=== PATIENT | female | born 1950 | race American Indian/Alaskan Native ===

== ENCOUNTER 2016-11-21 10:52 | Emergency (ER) | payer MEDICAID, MEDICARE ==
[2016-11-21 11:03] VITALS: TEMP 98.3; O2SAT 100; BMI 30.5
--- NOTE | 2016-11-21 11:31 | ED PDOC ---
Arrival/HPI - General Chief Complaint: Abnormal Skin Integrity Time Seen by Provider: 11/21/16 10:55 Historian: Patient, Family - History of Present Illness Narrative History of Present Illness (Text): 11/21/16 11:31 56-year-old female with a history of diabetes presents today with concerns for abscess to the right temporal region of the face. Patient denies pain. Denies fevers or chills. States she noticed the swelling to the face one week ago. No medications taken for pain at home. No other complaints Time/Duration: 1 week Symptom Onset: Sudden Symptom Course: Unchanged Quality: Other (no pain) Past Medical History - Provider Review Nursing Documentation Reviewed: Yes - Travel History Have you recently traveled outside [place] w/in the past 3 mons?: No - Past History Past History: Non-Contributing - Infectious Disease Hx of Infectious Diseases: None - Tetanus Immunization Tetanus Immunization: Unknown - Cardiac Hx Cardiac Disorders: (ptca with stent 2013) Hx Hypertension: Yes Hx Pacemaker: No Other/Comment: cardiac stent - Pulmonary Other/Comment: cardiac stent - Neurological HX Cerebrovascular Accident: Yes (04/20/15) Hx Paralysis: No - HEENT Hx Cataracts: Yes (b/l laser sx) - Endocrine/Metabolic Hx Diabetes Mellitus Type 2: Yes - Hematological/Oncological Hx Blood Transfusions: No Hx Blood Transfusion Reaction: No - Integumentary Other/Comment: dry skin to both feet was seeing dr christensen for right foot wound which is healed - Musculoskeletal/Rheumatological Hx Falls: No - Gastrointestinal Other/Comment: egd 04/20/15 abd and uterine mass, dx wiuth duodenitis, gastritis , bx done of abd mass - Psychiatric Hx Psychophysiologic Disorder: No Hx Emotional Abuse: No Hx Physical Abuse: No Hx Substance Use: No - Surgical History Hx Cardiac Catheterization: Yes Hx Section: Yes - Anesthesia Hx Anesthesia Reactions: No Hx Malignant Hyperthermia: No - Suicidal Assessment Feels Threatened In Home Enviroment: No Family/Social History - Physician Review Nursing Documentation Reviewed: Yes Family/Social History: Unknown Family HX Smoking Status: Never Smoked Hx Alcohol Use: No Hx Substance Use: No Hx Substance Use Treatment: No Allergies/Home Meds Allergies/Adverse Reactions: Allergies No Known Allergies Allergy (Verified 12/10/15 14:45) Home Medications: Home Meds Medication Instructions Recorded Confirmed Clopidogrel [Plavix] 75 mg PO DAILY 07/05/15 11/21/16 Linagliptin/Metformin HCl 1 tab PO BID 07/05/15 11/21/16 [Jentadueto 2.5 mg-1000 mg Tab] Metoprolol Tartrate [Lopressor] 100 mg PO BID 07/05/15 11/21/16 Aspirin 81 mg PO DAILY 07/07/15 11/21/16 Review of Systems - Review of Systems Constitutional: absent: Fatigue, Fevers Respiratory: absent: SOB, Cough Cardiovascular: absent: Chest Pain, Palpitations Gastrointestinal: absent: Abdominal Pain, Nausea, Vomiting Skin: Abscess Neurological: absent: Headache, Dizziness Psychiatric: absent: Anxiety, Depression Physical Exam Vital Signs Reviewed: Yes Vital Signs Temp Pulse Resp BP Pulse Ox 11/21/16 10:58 98.3 F 90 18 162/94 H 100 Temperature: Afebrile Blood Pressure: Hypertensive Pulse: Regular Respiratory Rate: Normal Appearance: Positive for: Well-Appearing, Non-Toxic, Comfortable Pain Distress: None Mental Status: Positive for: Alert and Oriented X 3 - Systems Exam Head: Present: Atraumatic, Other (there is a 3cm round fluctance noted to the right temporal region; minimal erythema; non tender. ) Mouth: Present: Moist Mucous Membranes Neck: Present: Normal Range of Motion Respiratory/Chest: Present: Clear to Auscultation Cardiovascular: Present: Regular Rate and Rhythm, Normal S1, S2. No: Murmurs Abdomen: No: Tenderness Back: Present: Normal Inspection Neurological: Present: GCS=15 Skin: Present: Warm, Dry Psychiatric: Present: Alert Medical Decision Making ED Course and Treatment: 11/21/16 11:33 66yr old female with swelling to right temporal region of face x 1 week. cyst vs abscess. will get surgical consult; case discussed with veronica surgical technologist. who will see patient at bedside. 11/21/16 12:38 pt seen and evaluated by surgical residents. I&D performed by surgical technologist veronica and dr. valladares. bactrim given po. will d/c patient home to f/u with Dr. Marmolejo. Advised patient to take Bactrim twice daily 7 days. Advised follow-up with a surgeon within the next 2 days. Advised patient to return for packing removal within the next 2 days. Advised may return if symptoms worsen or persist or if new concerning symptoms develop impression; infected sebaceous cyst Bactrim 1 tablet twice daily 7 days Follow-up with primary care physician within the next 2 days Follow-up with the surgeon within the next 2 days Return for packing removal and wound check in 2 days Return immediately if symptoms worsen,persist or if new symptoms develop. - Medication Orders Current Medication Orders: Trimethoprim/Sulfamethoxazole (Bactrim Ds Tab) 1 tab PO STAT STA PRN Reason: Protocol Stop: 11/21/16 12:38 Discontinued Medications Lidocaine HCl (Lidocaine 1% (20ml)) 10 ml IJ STAT STA Stop: 11/21/16 11:48 Disposition/Present on Arrival - Present on Arrival Any Indicators Present on Arrival: No History of DVT/PE: No History of Uncontrolled Diabetes: No Urinary Catheter: No History Surgical Site Infection Following: None - Disposition Have Diagnosis and Disposition been Completed?: Yes Diagnosis: Infected sebaceous cyst Disposition: HOME/ ROUTINE Disposition Time: 12:43 Patient Plan: Discharge Condition: GOOD Discharge Instructions (ExitCare): Abscess (ED) Additional Instructions: Bactrim 1 tablet twice daily 7 days Follow-up with primary care physician within the next 2 days Follow-up with the surgeon within the next 2 days Return for packing removal and wound check in 2 days Return immediately if symptoms worsen,persist or if new symptoms develop. Prescriptions: Sulfamethoxazole/Trimethoprim [Bactrim DS 800 mg-160 mg] 1 tab PO BID #14 tab Referrals: Henrik Corley MD [Primary Care Provider] - Follow up with primary Sohan Marmolejo MD [Staff Provider] - Follow up with primary
[2016-11-21] MEDS ORDERED: Lidocaine 1% Inj (20ml) IJ STA (11:47)
[2016-11-21] MEDS ORDERED: Tmp-Smz 800 mg-160 mg DS Tab PO STA (12:37)
--- NOTE | 2016-11-21 12:38 | CP.PCM.CON ---
History of Present Illness - History of Present Illness History of Present Illness: Consult note for Dr. Marmolejo: Patient is 66F who presents with an abscess on right temporal region. Patient has a PMH DM and HTN. DM sugar levels averaging 200s. Patient states she's noticed it for a week. Patient has had an I&D in the ED in the past at the back of her neck. Patient agreed to I&D at bedside. Past Patient History - Infectious Disease Hx of Infectious Diseases: None - Tetanus Immunizations Tetanus Immunization: Unknown - Past Medical History & Family History Past Medical History?: Yes - Past Social History Smoking Status: Never Smoked - CARDIAC Hx Cardiac Disorders: (ptca with stent 2013) Hx Hypertension: Yes Hx Pacemaker: No Other/Comment: cardiac stent - PULMONARY Other/Comment: cardiac stent - NEUROLOGICAL HX Cerebrovascular Accident: Yes (04/20/15) Hx Paralysis: No - HEENT Hx Cataracts: Yes (b/l laser sx) - RENAL Hx Chronic Kidney Disease: No - ENDOCRINE/METABOLIC Hx Diabetes Mellitus Type 2: Yes - HEMATOLOGICAL/ONCOLOGICAL Hx Blood Transfusions: No Hx Blood Transfusion Reaction: No - INTEGUMENTARY Other/Comment: dry skin to both feet was seeing dr christensen for right foot wound which is healed - MUSCULOSKELETAL/RHEUMATOLOGICAL Hx Falls: No - GASTROINTESTINAL Other/Comment: egd 04/20/15 abd and uterine mass, dx wiuth duodenitis, gastritis , bx done of abd mass - PSYCHIATRIC Hx Psychophysiologic Disorder: No Hx Emotional Abuse: No Hx Physical Abuse: No Hx Substance Use: No - SURGICAL HISTORY Hx Cardiac Catheterization: Yes Hx Section: Yes - ANESTHESIA Hx Anesthesia Reactions: No Hx Malignant Hyperthermia: No Meds Home Medications: Home Medication List Medication Instructions Recorded Confirmed Type Sulfamethoxazole/Trimethoprim 1 tab PO BID #14 tab 11/21/16 Rx [Bactrim DS 800 mg-160 mg] Allergies/Adverse Reactions: Allergies Allergy/AdvReac Type Severity Reaction Status Date / Time No Known Allergies Allergy Verified 12/10/15 14:45 Physical Exam - Constitutional Appears: Non-toxic, No Acute Distress - Head Exam Additional comments: right temporal abscess 2.5"x1.5" induration with fluctuance. - Eye Exam Eye Exam: EOMI, Normal appearance - ENT Exam ENT Exam: Mucous Membranes Moist - Neck Exam Neck exam: Positive for: Full Rom, Normal Inspection - Respiratory Exam Respiratory Exam: NORMAL BREATHING PATTERN. absent: Accessory Muscle Use, Chest Wall Tenderness, Respiratory Distress - Cardiovascular Exam Cardiovascular Exam: REGULAR RHYTHM. absent: Bradycardia, Tachycardia - GI/Abdominal Exam GI & Abdominal Exam: Soft. absent: Tenderness - Neurological Exam Neurological exam: Alert, Oriented x3 - Psychiatric Exam Psychiatric exam: Anxious, Normal Affect - Skin Skin Exam: Dry, Intact, Normal Color, Warm Results - Vital Signs Recent Vital Signs: Last Vital Signs Temp 98.3 F 11/21/16 10:58 Pulse 90 11/21/16 10:58 Resp 18 11/21/16 10:58 BP 162/94 H 11/21/16 10:58 Pulse Ox 100 11/21/16 10:58 Assessment & Plan - Assessment and Plan (Free Text) Assessment: 66F with abscess PMH DM and HTN s/p I&D with sebaceous cyst removal. Plan: I&D at bedside Wound Culture ordered, follow up wound culture results Discharge home on antibiotics per medicine team Follow up with Dr. Marmolejo in one week Keep area warm, dry. don't submerge area in water. Patient may shower. Change dressings daily. Return to ED if symptoms worse, area of incision bleeds a lot, increased erythema, purulence, drainage Peyton Garcia DO PGY1 - Date & Time Date: 11/21/16 Time: 12:40
--- NOTE | 2016-11-21 12:53 | PCM.PROC ---
- Incision & Drainage Of Abscess Anesthesia: Lidocaine 1% (3cc used for local anesthesia. aspirated prior to administration of local. no blood aspirated) Prep Used: Betadine (betadine, sterile blue towels placed with visible window of sterilized skin.) Procedure: Incised W/Scalpel Blade#: (11 blade, cruciate incision to prevent closure), Drained Pus, Probed To Break Up Loculations (with nicole), Packed W/ Gauze (and covered with a 2x2 and tape), Cultures Obtained And Sent To Lab ( wound culture of right temporal region purulence)
[2016-11-21 13:03] VITALS: BP 159/90; PULSE 89; RESP 17
== END 2016-11-21 13:10 | disposition home or self-care (01) ==
LOC: ED 10:52
DX: L72.3 Sebaceous cyst (principal)

== ENCOUNTER 2016-11-23 13:13 | Emergency (ER) | payer MEDICARE ==
[2016-11-23 13:13] VITALS: BMI 30.5
--- NOTE | 2016-11-23 13:33 | ED PDOC ---
Arrival/HPI - General Time Seen by Provider: 11/23/16 13:28 Historian: Patient - History of Present Illness Narrative History of Present Illness (Text): 11/23/16 13:29 66 y/o female, pmh including htn/hyperlipidemia/dm, nkda, s/p I&D on the rt. temporal head region and told to come back to the ER for packing and wound check. Pt. was seen in the ER about 2 days ago, surgery was consulted, had I& D done on the bedside, told to come to the ER for wound check in 2 days and outpatient follow up with Dr. Camacho, no fever or chills, stated that she feels a lot better, no night sweat, no other medical or psychological complaints. Past Medical History - Provider Review Nursing Documentation Reviewed: Yes - Past History Past History: Non-Contributing - Infectious Disease Hx of Infectious Diseases: None - Tetanus Immunization Tetanus Immunization: Unknown - Cardiac Hx Cardiac Disorders: (ptca with stent 2013) Hx Hypertension: Yes Hx Pacemaker: No Other/Comment: cardiac stent - Pulmonary Other/Comment: cardiac stent - Neurological HX Cerebrovascular Accident: Yes (04/20/15) Hx Paralysis: No - HEENT Hx Cataracts: Yes (b/l laser sx) - Renal Hx Renal Disorder: No - Endocrine/Metabolic Hx Diabetes Mellitus Type 2: Yes - Hematological/Oncological Hx Blood Transfusions: No Hx Blood Transfusion Reaction: No - Integumentary Other/Comment: dry skin to both feet was seeing dr christensen for right foot wound which is healed - Musculoskeletal/Rheumatological Hx Falls: No - Gastrointestinal Other/Comment: egd 04/20/15 abd and uterine mass, dx wiuth duodenitis, gastritis , bx done of abd mass - Psychiatric Hx Psychophysiologic Disorder: No Hx Emotional Abuse: No Hx Physical Abuse: No Hx Substance Use: No - Surgical History Hx Cardiac Catheterization: Yes Hx Section: Yes - Anesthesia Hx Anesthesia Reactions: No Hx Malignant Hyperthermia: No - Suicidal Assessment Feels Threatened In Home Enviroment: No Family/Social History - Physician Review Nursing Documentation Reviewed: Yes Family/Social History: Unknown Family HX Smoking Status: Never Smoked Hx Alcohol Use: No Hx Substance Use: No Hx Substance Use Treatment: No Allergies/Home Meds Allergies/Adverse Reactions: Allergies No Known Allergies Allergy (Verified 11/23/16 13:34) Home Medications: Home Meds Medication Instructions Recorded Confirmed Clopidogrel [Plavix] 75 mg PO DAILY 07/05/15 11/21/16 Linagliptin/Metformin HCl 1 tab PO BID 07/05/15 11/21/16 [Jentadueto 2.5 mg-1000 mg Tab] Metoprolol Tartrate [Lopressor] 100 mg PO BID 07/05/15 11/21/16 Aspirin 81 mg PO DAILY 07/07/15 11/21/16 Review of Systems - Review of Systems Constitutional: absent: Fatigue, Fevers Eyes: absent: Vision Changes ENT: absent: Hearing Changes Respiratory: absent: SOB, Cough Cardiovascular: absent: Chest Pain Gastrointestinal: absent: Abdominal Pain Musculoskeletal: absent: Arthralgias, Back Pain, Neck Pain Skin: Skin Lesions, Abscess. absent: Rash, Pruritis, Laceration, Ulcer, Cellulitis Neurological: absent: Headache, Dizziness, Focal Weakness Physical Exam Vital Signs Reviewed: Yes Temperature: Afebrile Blood Pressure: Normal Pulse: Regular Respiratory Rate: Normal Appearance: Positive for: Well-Appearing, Non-Toxic, Comfortable Pain Distress: Mild Mental Status: Positive for: Alert and Oriented X 3 - Systems Exam Head: Present: Atraumatic, Normocephalic Pupils: Present: PERRL Extroacular Muscles: Present: EOMI Conjunctiva: Present: Normal Mouth: Present: Moist Mucous Membranes Neck: Present: Normal Range of Motion Respiratory/Chest: Present: Clear to Auscultation, Good Air Exchange. No: Respiratory Distress, Accessory Muscle Use Cardiovascular: Present: Regular Rate and Rhythm, Normal S1, S2. No: Murmurs Abdomen: Present: Normal Bowel Sounds. No: Tenderness, Distention, Peritoneal Signs Back: Present: Normal Inspection Upper Extremity: Present: Normal Inspection. No: Cyanosis, Edema Lower Extremity: Present: Normal Inspection. No: Edema Neurological: Present: GCS=15, Speech Normal, Motor Func Grossly Intact, Gait Normal, Memory Normal Skin: Present: Warm, Dry, Rashes (rt. temporal/lateral frontal region visible packing wound with fluctuant of approx. 1cc of purulant discharge with packing coated with yellow purulant discharge, no cellulitis or streaking, no ulcers. ) , Normal Color Psychiatric: Present: Alert, Oriented x 3, Normal Insight, Normal Concentration Medical Decision Making ED Course and Treatment: 11/23/16 13:47 -old packing removed, automatically released approx. 1cc of purulant yellow drainages with the fluctuant and swelling resolved spontaneously, irrigated with saline, clean with betadined, 1/4" iodofoam packing inserted approx. 3cc loosely to prevent the plugging the drainage effect,xerofoam and gauze dressing. -Discharge home with keflex, continue bactrim ds at home, return to the ER in 2 days for packing removal and wound check, follow up with your own pmd and surgeon within 3 days, return to the ER for any new or worsening signs or symptoms. - PA / VETERINARY BACTERIOLOGIST / Resident Statement / has reviewed & agrees with the documentation as recorded. Disposition/Present on Arrival - Present on Arrival Any Indicators Present on Arrival: No History of DVT/PE: No History of Uncontrolled Diabetes: No Urinary Catheter: No History of Decub. Ulcer: No History Surgical Site Infection Following: None - Disposition Have Diagnosis and Disposition been Completed?: Yes Diagnosis: Skin lesion, Wound check, abscess Disposition: HOME/ ROUTINE Disposition Time: 13:31 Patient Plan: Discharge Condition: GOOD Additional Instructions: -Discharge home with keflex, continue bactrim ds at home, return to the ER in 2 days for packing removal and wound check, follow up with your own pmd and surgeon within 3 days, return to the ER for any new or worsening signs or symptoms. Prescriptions: Cephalexin [cephalexin] 500 mg PO QID #28 cap Referrals: Sohan Marmolejo MD [Staff Provider] - Follow up with primary Forms: WORK NOTE
[2016-11-23 13:34] VITALS: BP 139/83; PULSE 90; RESP 16; TEMP 99.3; O2SAT 98
== END 2016-11-23 13:50 | disposition home or self-care (01) ==
LOC: ED 13:13
DX: Z48.817 Encounter for surgical aftercare following surgery on the skin and subcutaneous tissue (principal)

== ENCOUNTER 2016-11-25 14:00 | Emergency (ER) | payer MEDICARE ==
[2016-11-25 14:00] VITALS: BMI 30.5
[2016-11-25 14:14] VITALS: BP 160/81; PULSE 92; RESP 18; TEMP 98.4; O2SAT 100
--- NOTE | 2016-11-25 14:31 | ED PDOC ---
Arrival/HPI - General Chief Complaint: Wound Check Time Seen by Provider: 11/25/16 14:10 Historian: Patient - History of Present Illness Narrative History of Present Illness (Text): 11/25/16 14:29 66-year-old female presents today for reevaluation of an abscess to the right temporal region. Patient states she had an incision and drainage of the abscess and presents today for packing removal. She denies fevers or chills. Denies pain. States the swelling has decreased. Patient states she has follow-up appointment scheduled with her primary care physician on November 30. Quality: Other (No pain) Past Medical History - Provider Review Nursing Documentation Reviewed: Yes - Travel History Have you recently traveled outside [place] w/in the past 3 mons?: No - Past History Past History: Non-Contributing - Infectious Disease Hx of Infectious Diseases: None - Tetanus Immunization Tetanus Immunization: Unknown - Cardiac Hx Cardiac Disorders: (ptca with stent 2013) Hx Hypertension: Yes Hx Pacemaker: No Other/Comment: cardiac stent - Pulmonary Other/Comment: cardiac stent - Neurological HX Cerebrovascular Accident: Yes (04/20/15) Hx Paralysis: No - HEENT Hx Cataracts: Yes (b/l laser sx) - Renal Hx Renal Disorder: No - Endocrine/Metabolic Hx Diabetes Mellitus Type 2: Yes - Hematological/Oncological Hx Blood Transfusions: No Hx Blood Transfusion Reaction: No - Integumentary Other/Comment: dry skin to both feet was seeing dr christensen for right foot wound which is healed - Musculoskeletal/Rheumatological Hx Falls: No - Gastrointestinal Other/Comment: egd 04/20/15 abd and uterine mass, dx wiuth duodenitis, gastritis , bx done of abd mass - Psychiatric Hx Psychophysiologic Disorder: No Hx Emotional Abuse: No Hx Physical Abuse: No Hx Substance Use: No - Surgical History Hx Cardiac Catheterization: Yes Hx Section: Yes - Anesthesia Hx Anesthesia Reactions: No Hx Malignant Hyperthermia: No - Suicidal Assessment Feels Threatened In Home Enviroment: No Family/Social History - Physician Review Nursing Documentation Reviewed: Yes Family/Social History: Unknown Family HX Smoking Status: Never Smoked Hx Alcohol Use: No Hx Substance Use: No Hx Substance Use Treatment: No Allergies/Home Meds Allergies/Adverse Reactions: Allergies No Known Allergies Allergy (Verified 11/25/16 14:14) Home Medications: Home Meds Medication Instructions Recorded Confirmed Clopidogrel [Plavix] 75 mg PO DAILY 07/05/15 11/25/16 Linagliptin/Metformin HCl 1 tab PO BID 07/05/15 11/25/16 [Jentadueto 2.5 mg-1000 mg Tab] Metoprolol Tartrate [Lopressor] 100 mg PO BID 07/05/15 11/25/16 Aspirin 81 mg PO DAILY 07/07/15 11/25/16 Review of Systems - Review of Systems Constitutional: absent: Fatigue, Fevers Respiratory: absent: SOB, Cough Cardiovascular: absent: Chest Pain, Palpitations Gastrointestinal: absent: Abdominal Pain, Diarrhea, Nausea, Vomiting Musculoskeletal: absent: Arthralgias, Back Pain, Neck Pain Skin: Abscess Neurological: absent: Headache, Dizziness Psychiatric: absent: Anxiety Physical Exam Vital Signs Reviewed: Yes Vital Signs Temp Pulse Resp BP Pulse Ox 11/25/16 14:11 98.4 F 92 H 18 160/81 H 100 Temperature: Afebrile Blood Pressure: Hypertensive Pulse: Regular Respiratory Rate: Normal Appearance: Positive for: Well-Appearing, Non-Toxic, Comfortable Pain Distress: None Mental Status: Positive for: Alert and Oriented X 3 - Systems Exam Head: Present: Other (There is an abscess with packing in place noted to the right temporal region without surrounding erythema or edema or tenderness. No purulent discharge noted.) Mouth: Present: Moist Mucous Membranes Respiratory/Chest: Present: Clear to Auscultation Cardiovascular: Present: Regular Rate and Rhythm Neurological: Present: GCS=15 Skin: Present: Warm, Dry Psychiatric: Present: Alert, Oriented x 3 Medical Decision Making ED Course and Treatment: 11/25/16 14:31 Patient is nontoxic well-appearing in no distress. Vital signs are stable. Packing removed from right temporal region abscess. No purulent discharge. No erythema no tenderness no swelling. Dressing applied. Patient was advised to follow up with primary care physician and surgeon and continue antibiotics as prescribed return immediately if symptoms worsen persist or if new symptoms develop Patient verbalizes understanding of discharge instructions and need for immediate followup. Impression: Abscess, face continue antibiotics as prescribed follow up with the primary care physician within the next 2 days follow up with the surgeon within the next 2 days. Return immediately if symptoms worsen persist or if new symptoms develop: High fevers, increasing pain, increasing redness, swelling or if any other concerning symptoms develop. Disposition/Present on Arrival - Present on Arrival Any Indicators Present on Arrival: No History of DVT/PE: No History of Uncontrolled Diabetes: No Urinary Catheter: No History of Decub. Ulcer: No History Surgical Site Infection Following: None - Disposition Have Diagnosis and Disposition been Completed?: Yes Diagnosis: Wound check, abscess Disposition: HOME/ ROUTINE Disposition Time: 14:28 Patient Plan: Discharge Condition: GOOD Discharge Instructions (ExitCare): Abscess (ED) Additional Instructions: continue antibiotics as prescribed follow up with the primary care physician within the next 2 days follow up with the surgeon within the next 2 days. Return immediately if symptoms worsen persist or if new symptoms develop: High fevers, increasing pain, increasing redness, swelling or if any other concerning symptoms develop. Referrals: Henrik Corley MD [Staff Provider] - Follow up with primary Sohan Marmolejo MD [Staff Provider] - Follow up with primary Forms: [employer] Business Plan ([place])
== END 2016-11-25 14:48 | disposition home or self-care (01) ==
LOC: ED 14:00
DX: Z51.89 Encounter for other specified aftercare (principal); L02.01 Cutaneous abscess of face

== ENCOUNTER 2017-04-09 14:02 | Emergency (ER) | payer MEDICAID, MEDICARE ==
[2017-04-09 14:02] VITALS: BMI 30.5
--- NOTE | 2017-04-09 14:50 | ED PDOC ---
Arrival/HPI - General Chief Complaint: Headache Time Seen by Provider: 04/09/17 14:36 Historian: Patient, Spouse - History of Present Illness Narrative History of Present Illness (Text): 04/09/17 14:47 A 66 year old female, whose past medical history includes hypertension, diabetes , stroke, stents, presents to the emergency department complaining of 1 week duration lightheadedness. The patient describes it as a room- spinning sensation and notes that her symptoms are reproducible with head movement. She notes associated vomiting. The patient denies fevers, chills, headache, chest pain, shortness of breath, dyspnea on exertion, cough, abdominal pain, nausea, diarrhea, back pain, neck pain, urinary/bowel changes, or any other complaint. PMD: Dr. Corley Time/Duration: 1 week Symptom Onset: Sudden Symptom Course: Unchanged Activities at Onset: Rest, Light Context: Home Past Medical History - Provider Review Nursing Documentation Reviewed: Yes - Past History Past History: Non-Contributing - Infectious Disease Hx of Infectious Diseases: None - Tetanus Immunization Tetanus Immunization: Unknown - Cardiac Hx Cardiac Disorders: (ptca with stent 2013) Hx Hypertension: Yes Hx Pacemaker: No Other/Comment: cardiac stent - Pulmonary Other/Comment: cardiac stent - Neurological HX Cerebrovascular Accident: Yes (04/20/15) Hx Paralysis: No - HEENT Hx Cataracts: (b/l laser sx) Hx Glaucoma: Yes - Renal Hx Renal Disorder: No - Endocrine/Metabolic Hx Diabetes Mellitus Type 2: Yes - Hematological/Oncological Hx Blood Transfusions: No Hx Blood Transfusion Reaction: No - Integumentary Other/Comment: dry skin to both feet was seeing dr christensen for right foot wound which is healed - Musculoskeletal/Rheumatological Hx Falls: No - Gastrointestinal Other/Comment: egd 04/20/15 abd and uterine mass, dx wiuth duodenitis, gastritis , bx done of abd mass - Psychiatric Hx Psychophysiologic Disorder: No Hx Emotional Abuse: No Hx Physical Abuse: No Hx Substance Use: No - Surgical History Hx Cardiac Catheterization: Yes Hx Section: Yes - Anesthesia Hx Anesthesia: Yes Hx Anesthesia Reactions: No Hx Malignant Hyperthermia: No - Suicidal Assessment Feels Threatened In Home Enviroment: No Family/Social History - Physician Review Nursing Documentation Reviewed: Yes Family/Social History: No Known Family HX Smoking Status: Never Smoked Hx Alcohol Use: No Hx Substance Use: No Hx Substance Use Treatment: No Allergies/Home Meds Allergies/Adverse Reactions: Allergies No Known Allergies Allergy (Verified 11/25/16 14:14) Home Medications: Home Meds Medication Instructions Recorded Confirmed Clopidogrel [Plavix] 75 mg PO DAILY 07/05/15 04/09/17 Linagliptin/Metformin HCl 1 tab PO BID 07/05/15 04/09/17 [Jentadueto 2.5 mg-1000 mg Tab] Metoprolol Tartrate [Lopressor] 100 mg PO BID 07/05/15 04/09/17 Aspirin 81 mg PO DAILY 07/07/15 04/09/17 Review of Systems - Physician Review All systems were reviewed & negative as marked: Yes - Review of Systems Constitutional: absent: Fevers, Night Sweats Respiratory: absent: SOB Cardiovascular: absent: Chest Pain, BECKMAN Gastrointestinal: Vomiting. absent: Abdominal Pain, Stool Changes, Diarrhea, Nausea Genitourinary Female: absent: Urine Output Changes Musculoskeletal: absent: Back Pain, Neck Pain Neurological: Dizziness (Lightheadedness). absent: Headache Physical Exam Vital Signs Reviewed: Yes Vital Signs Temp Pulse Resp BP Pulse Ox 04/09/17 14:18 98.2 F 92 H 18 132/65 98 Temperature: Afebrile Blood Pressure: Normal Pulse: Tachycardic Respiratory Rate: Normal Appearance: Positive for: Well-Appearing, Non-Toxic, Comfortable Pain Distress: None Mental Status: Positive for: Alert and Oriented X 3 - Systems Exam Head: Present: Atraumatic, Normocephalic, Other (Patient's dizziness is reproducible with head movement and when she gets up from a lying position. ) Pupils: Present: PERRL Extroacular Muscles: Present: EOMI Conjunctiva: Present: Injected (Katy) Mouth: Present: Moist Mucous Membranes Neck: Present: Normal Range of Motion Respiratory/Chest: Present: Clear to Auscultation, Good Air Exchange. No: Respiratory Distress, Accessory Muscle Use Cardiovascular: Present: Regular Rate and Rhythm, Normal S1, S2. No: Murmurs Abdomen: Present: Normal Bowel Sounds. No: Tenderness, Distention, Peritoneal Signs Back: Present: Normal Inspection Upper Extremity: Present: Normal Inspection. No: Cyanosis, Edema Lower Extremity: Present: Normal Inspection. No: Edema Neurological: Present: GCS=15, CN II-XII Intact, Speech Normal Skin: Present: Warm, Dry, Normal Color. No: Rashes Psychiatric: Present: Alert, Oriented x 3, Normal Insight, Normal Concentration Medical Decision Making ED Course and Treatment: 04/09/17 14:52 Impression: A 66 year old female presents to the emergency department complaining of lightheadedness and associated vomiting. Plan: -- EKG -- Labs -- Antivert -- Reassess and disposition Progress Notes: EKG: Ordered, reviewed, and independently interpreted the EKG. Rate : 88 BPM Rhythm : NSR Interpretation : No acute changes - Lab Interpretations Lab Results: 04/09/17 15:25 04/09/17 15:25 Lab Results 04/09/17 15:25: WBC 4.6, RBC 4.17, Hgb 12.3, Hct 39.0, MCV 93.5, MCH 29.5, MCHC 31.5, RDW 14.1, Plt Count 216, MPV 10.1, Gran % 56.5, Lymph % (Auto) 33.6, Gove % (Auto) 4.8, Eos % (Auto) 4.4, Baso % (Auto) 0.7, Gran # 2.58, Lymph # 1.5, Gove # 0.2, Eos # 0.2, Baso # 0.03 04/09/17 15:25: Sodium 143, Potassium 4.3, Chloride 103, Carbon Dioxide 31, Anion Gap 13, BUN 28 H, Creatinine 0.9, Est GFR ( Amer) > 60, Est GFR ( Non-Af Amer) > 60, Random Glucose 254 H, Calcium 9.2, Total Bilirubin 0.2, AST 25, ALT 26, Alkaline Phosphatase 77, Total Protein 6.9, Albumin 3.7, Globulin 3.3, Albumin/Globulin Ratio 1.1 I have reviewed the lab results: Yes - EKG Interpretation Interpreted by ED Physician: Yes Type: 12 lead EKG - Medication Orders Current Medication Orders: Discontinued Medications Meclizine HCl (Antivert) 25 mg PO STAT STA Stop: 04/09/17 15:15 Last Admin: 04/09/17 15:29 Dose: 25 mg - Scribe Statement The provider has reviewed the documentation as recorded by the Andradeibe Alexandra Turcios Provider Scribe Attestation: All medical record entries made by the Andradeiblori were at my direction and personally dictated by me. I have reviewed the chart and agree that the record accurately reflects my personal performance of the history, physical exam, medical decision making, and the department course for this patient. I have also personally directed, reviewed, and agree with the discharge instructions and disposition. Disposition/Present on Arrival - Present on Arrival Any Indicators Present on Arrival: No History of DVT/PE: No History of Uncontrolled Diabetes: No Urinary Catheter: No History of Decub. Ulcer: No History Surgical Site Infection Following: None - Disposition Have Diagnosis and Disposition been Completed?: Yes Diagnosis: Vertigo Disposition: HOME/ ROUTINE Disposition Time: 17:00 Patient Plan: Discharge Condition: STABLE Prescriptions: Meclizine HCl [Travel Sickness] 25 mg PO TID PRN #20 tab-cap PRN Reason: Dizziness Referrals: Henrik Corley MD [Primary Care Provider] - Follow up with primary Forms: [employer] ([place])
[2017-04-09 15:36] LABS: BASO # 0.03 K/mm3 (0.0-2.0); BASO % 0.7 % (0.0-3.0); EOS # 0.2 (0.0-0.7); EOS % 4.4 % (1.5-5.0); GRAN # 2.58 (1.4-6.5); GRAN % 56.5 % (50.0-68.0); HEMOGLOBIN 12.3 g/dL (12.0-16.0); LYMPH # 1.5 (1.2-3.4); LYMPH % 33.6 % (22.0-35.0); MEAN CELL VOLUME 93.5 fl (80.0-105.0); MEAN CORPUSCULAR HEMOGLOBIN 29.5 pg (25.0-35.0); MEAN CORPUSCULAR HGB CONC 31.5 g/dl (31.0-37.0); MEAN PLATELET VOLUME 10.1 fl (7.0-11.0); MONO # 0.2 (0.1-0.6); MONO % 4.8 % (1.0-6.0); RBC 4.17 10^6/uL (3.5-6.1); RED CELL DISTRIBUTION WIDTH 14.1 % (11.5-14.5); WHITE BLOOD COUNT 4.6 10^3/ul (4.5-11.0)
[2017-04-09 15:48] LABS: ALB/GLOB RATIO 1.1 (1.1-1.8); ALBUMIN 3.7 g/dL (3.0-4.8); ALT/SGPT 26 U/L (7-56); AST/SGOT 25 U/L (14-36); BLOOD UREA NITROGEN 28 mg/dL (7-21); CALCIUM 9.2 mg/dL (8.4-10.5); GFR AFRICAN-AMERICAN > 60; GFR NON-AFRICAN AMERICAN > 60
[2017-04-09 16:54] VITALS: BP 142/85; PULSE 84; RESP 16; TEMP 98; O2SAT 96
== END 2017-04-09 16:56 | disposition home or self-care (01) ==
LOC: ED 14:02
DX: R42 Dizziness and giddiness (principal); I10 Essential (primary) hypertension

== ENCOUNTER 2018-04-19 12:50 | Outpatient (CLI) | payer MEDICARE, MEDICAID | END 2018-04-19 12:51 | disposition home or self-care (01) | LOC: RAD 12:51 ==

== ENCOUNTER 2018-04-20 07:07 | Outpatient (CLI) | payer MEDICARE | END 2018-04-20 07:08 | disposition home or self-care (01) | LOC: LAB 07:07 ==

== ENCOUNTER 2018-05-03 11:58 | Outpatient (CLI) | payer MEDICARE | END 2018-05-03 11:59 | disposition home or self-care (01) | LOC: RAD 11:58 | DX: C49.4 Malignant neoplasm of connective and soft tissue of abdomen (principal) ==

== ENCOUNTER 2018-07-10 10:53 | Day surgery (SDC) | payer MEDICARE, MEDICAID ==
[2018-06-27 10:37] VITALS: BMI 31.3
[2018-07-10 11:44] LABS: BASO # 0.06 K/mm3 (0.0-2.0); BASO % 1.2 % (0.0-3.0); EOS # 0.3 (0.0-0.7); HEMOGLOBIN 12.7 g/dL (12.0-16.0); LYMPH # 1.9 (1.2-3.4); LYMPH % 35.7 % (22.0-35.0); MEAN CELL VOLUME 87.7 fl (80.0-105.0); MEAN CORPUSCULAR HGB CONC 31.9 g/dl (31.0-37.0); MEAN PLATELET VOLUME 10.1 fl (7.0-11.0); MONO # 0.4 (0.1-0.6); MONO % 7.1 % (1.0-6.0); RBC 4.54 10^6/uL (3.5-6.1); RED CELL DISTRIBUTION WIDTH 13.9 % (11.5-14.5); WHITE BLOOD COUNT 5.2 10^3/uL (4.5-11.0)
[2018-07-10 11:45] LABS: PARTIAL THROMBOPLASTIN TIME 27.6 Seconds (26.9-38.3); PROTHROMBIN TIME 11.3 SECONDS (9.4-12.5)
[2018-07-10] MEDS ORDERED: Midazolam 2 MG/2 ML VIAL ONE (13:39)
[2018-07-10] MEDS ORDERED: Midazolam 2 MG/2 ML VIAL IVP ONE (13:50)
[2018-07-10] MEDS ORDERED: Sodium Chloride 0.45% 1,000 ML IV SCH (14:15)
[2018-07-10 14:44] VITALS: RESP 18
[2018-07-10 14:56] LABS: BLOOD UREA NITROGEN 18 mg/dL (7-21); CALCIUM 9.1 mg/dL (8.4-10.5); GFR NON-AFRICAN AMERICAN > 60
[2018-07-10 15:22] VITALS: PULSE 96; TEMP 97.9
--- NOTE | 2018-07-10 16:23 | US ---
PROCEDURE: Ultrasound-guided thyroid fine needle aspiration biopsy. CLINICAL HISTORY: Multiple small nodules. Dominant 2 cm isthmus nodule with hypervascularity. Evaluate for malignancy PHYSICIAN(S): Nicholas Scott M.D. TECHNIQUE: The relative risks and indications for the procedure were explained to the patient and consent obtained. The patient was placed supine on the stretcher with the neck extended and preliminary sonography of the thyroid performed. This revealed multiple small bilateral nodules. A dominant 2 cm hypoechoic nodule was hypervascularity was noted in the isthmus The neck was prepped and draped in the usual sterile fashion. Conscious sedation and monitoring were provided throughout the procedure by a nurse. 1% Xylocaine was used to anesthetize the skin and soft tissues at the access site. Three passes with a 22-gauge needle were performed under ultrasound guidance for fine needle aspiration of the 2 cm hypoechoic nodule in the isthmus. The slides were reviewed by pathology and deemed adequate. The patient tolerated the procedure well. IMPRESSION: 1. Ultrasound guided fine needle aspiration of a 2 cm dominant nodule in the isthmus
[2018-07-10 16:57] VITALS: O2SAT 95
[2018-07-10 17:27] VITALS: BP 160/84
== END 2018-07-10 17:00 | disposition home or self-care (01) ==
LOC: SDS 10:53
PROVIDERS: ATTEND Radiology Vascular & Interventional Radiology
DX: E04.9 Nontoxic goiter, unspecified (principal); I10 Essential (primary) hypertension; I25.10 Atherosclerotic heart disease of native coronary artery without angina pectoris; E11.9 Type 2 diabetes mellitus without complications; Z86.73 Personal history of transient ischemic attack (TIA), and cerebral infarction without residual deficits
CPT/HCPCS: 10005; 36415; 80048; 85025; 85610; 85730; 88173; 88305; J2250; J2405; J3010; J7030